=== PATIENT | female | born 1970 | race African-American/Black ===

== ENCOUNTER 2018-12-19 07:46 | Emergency (ER) | payer OTHER ==
--- NOTE | 2018-12-19 07:59 | ED Physician Documentation ---
General Adult - HISTORIAN Historian: patient - HPI Stated Complaint: chest pain Chief Complaint: General Adult Onset: hours Timing: still present Severity: moderate Further Comments: yes (Pt is a 48 yo aa female with 10/10 chest pain with some sob and n/v. No radiation. Pt has had pain for 3 days, but it was much worse today. Pt has no personal hx CAD. She does have hx HTN and states that she has HLD. Pt also has GERD and bipolar d/o. Pt is a smoker. Denies alcohol, drug abuse.) - ROS CONST: weakness EYES/ENT: none CVS/RESP: chest pain, shortness of breath GI/: nausea MS/SKIN/LYMPH: none - PAST HX Past History: hypertension, other (GERD, HLD, ) Allergies/Adverse Reactions: Allergies Allergy/AdvReac Type Severity Reaction Status Date / Time No Known Drug Allergies Allergy Verified 12/19/18 07:58 Home Medications: Ambulatory Orders Medication Instructions Recorded Clonazepam [Klonopin] 1 tab PO BID 12/19/18 - SOCIAL HX Smoking History: cigarettes - FAMILY HX Family History: No - REVIEWED ASSESSMENTS Nursing Assessment Reviewed: Yes Vitals Reviewed: Yes Progress - Progress Progress: CXR: There is no focal consolidation, pleural effusion, or pneumothorax. The cardiomediastinal silhouette is normal. The visible bony thorax is intact. IMPRESSION: No acute pulmonary process. Nitro 0.4 mg SL x 2 with no relief Morphine 2 mg IV x 2 Zofran 4 mg IV Heparin 4000 unit bolus then 1000 units/ hr IV Metorpolol 25 mg po Plavix 600 mg po Troponin 0.403; ST elevations V2-V5 Acute HI Transfer to Hosp. Dr. Nura Arellano. - EKG/XRAY/CT EKG: NSR (HR=65; ST elevations in V2 through V5.) General Adult Physical Exam - PHYSICAL EXAM GENERAL APPEARANCE: moderate distress EENT: pharynx normal NECK: normal inspection, supple RESPIRATORY: no resp distress, chest non-tender, breath sounds normal CVS: reg rate & rhythm, heart sounds normal ABDOMEN: soft, no organomegaly, normal bowel sounds BACK: normal inspection, no CVA tenderness SKIN: warm/dry, normal color EXTREMITIES: non-tender, normal range of motion, no evidence of injury NEURO: oriented X3, motor nml, sensation nml Discharge Clincal Impression: STEMI (ST elevation myocardial infarction) Qualifiers: Involved coronary artery: unspecified coronary artery Qualified Code(s): I21.3 - ST elevation (STEMI) myocardial infarction of unspecified site Referrals: Owen Iverson [Primary Care Provider] - Condition: Fair Disposition: 02 XFER SHT-TRM HOSP Decision to Admit: NO Decision Time: 08:27
[2018-12-19] MEDS: ASPIRIN 81 MG CHEW TAB PO ONE (08:00)
[2018-12-19] MEDS: ONDANSETRON HCL/PF 4 MG/ 2ML VIAL IVP ONE (08:04)
[2018-12-19] MEDS: MORPHINE SULFATE 4 MG/ML VIAL IV ONE ×2 (08:07→08:24)
[2018-12-19] MEDS: CLOPIDOGREL BISULFATE 75 MG TABLET PO ONE (08:18)
[2018-12-19] MEDS: METOPROLOL TARTRATE 50 MG TABLET PO ONE (08:18)
[2018-12-19] MEDS: HEPARIN SODIUM 5000 UNIT/1 ML IV STA (08:19)
[2018-12-19 08:23] LABS: eGFR (Non-African) > 60
--- NOTE | 2018-12-19 08:29 | Diagnostic Imaging Report ---
[facility] [id number] [facility].[address] [id number] Report Submission Date: Dec 19, 2018 8:19:41 AM CDT Patient Study Name: OBDULIA LAZAR Date: Dec 19, 2018 8:01:14 AM CDT Modality Type: DX Gender: F Description: CHEST 1VIEW : 68 Institution: [facility] Physician: T[place]AN BENTLEY EXAMINATION: CHEST 1VIEW HISTORY: CHEST PAIN X 3 DAYS (Hx) / Note time : 12/19/2018 8:17:37 AM User : Jessica Daniel CHEST PAIN X 3 DAYS (DICOM Hx) (DICOM Hx) COMPARISON: None FINDINGS: There is no focal consolidation, pleural effusion, or pneumothorax. The cardiomediastinal silhouette is normal. The visible bony thorax is intact. IMPRESSION: No acute pulmonary process. Electronically signed on Dec 19, 2018 8:19:41 AM CDT by: Gavin VELASQUEZ
[2018-12-19] MEDS: ASPIRIN 81 MG CHEW TAB ONE (08:38)
[2018-12-19] MEDS: NITROGLYCERIN 0.4 MG TAB.SUBL SL ONE (08:38)
[2018-12-19] MEDS: ONDANSETRON HCL/PF 4 MG/ 2ML VIAL ONE (08:39)
[2018-12-19] MEDS: 0.9 % SODIUM CHLORIDE 1,000 ML IV ONE (08:39)
[2018-12-19] MEDS: MORPHINE SULFATE 4 MG/ML VIAL ONE (08:39)
[2018-12-19 08:44] VITALS: BP 148/84
[2018-12-19] MEDS ORDERED: RED CRASH CART TAGS 1 EACH MC ONE (08:49)
[2018-12-19 09:32] LABS: HYPOCHROMASIA 1+ (NEGATIVE); TARGET CELLS 1+ (NEGATIVE)
== END 2018-12-19 08:26 | disposition short-term general hospital (02) ==
LOC: ED 07:46
DX: I21.3 ST elevation (STEMI) myocardial infarction of unspecified site (principal); F17.210 Nicotine dependence, cigarettes, uncomplicated
CPT/HCPCS: 71045; 80053; 82550; 82553; 83880; 84484; 85025; 96374; 96375; 99284; J1644; J2270; J2405; 93005; S1016